=== PATIENT | female | born 1990 | race Caucasian/White ===

== ENCOUNTER 2017-03-23 12:17 | Emergency (ER) | payer SELFPAY | END 2017-03-23 15:50 | disposition home or self-care (01) | LOC: ER1 12:17 | DX: S46.912A Strain of unspecified muscle, fascia and tendon at shoulder and upper arm level, left arm, initial encounter (principal); S16.1XXA Strain of muscle, fascia and tendon at neck level, initial encounter; V89.2XXA Person injured in unspecified motor-vehicle accident, traffic, initial encounter; Y93.89 Activity, other specified; Y92.481 Parking lot as the place of occurrence of the external cause | CPT/HCPCS: 72040; 73030; 73502; 81001; 84703; 99284 ==

== ENCOUNTER → 2021-08-04 | Outpatient (CLI) | payer OTHER ==
[~2021-08-04] MED LIST: HIGH POTENCY I134 MG PO; LODINE CAP 300300 MG PO; NAPROSYN500 MG PO; PANTOPRAZOLE SO40 MG PO
== END ==
LOC: SLEEP 10:47
DX: R06.83 Snoring (principal); R40.0 Somnolence; R63.5 Abnormal weight gain; Z68.41 Body mass index [BMI] 40.0-44.9, adult
CPT/HCPCS: 95810